=== PATIENT | female | born 1990 | race Caucasian/White ===

== ENCOUNTER 2018-02-15 01:56 | Emergency (ER) | payer MEDICAID ==
[~2018-02-15] VITALS: Ht 160 cm; Wt 82.5 kg
[2018-02-15 02:10] VITALS: Ht 160 cm; Wt 82.5 kg
[2018-02-15 03:23] LABS: PLATELET COUNT 286 x10^3mcL (130-400); RED CELL DISTRIBUTION WIDTH 12.2 % (11.5-14.5)
[2018-02-15 03:36] LABS: CALCIUM 8.5 mg/dL (8.5-10.1); CARBON DIOXIDE 25.5 mmol/L (21-32); CHLORIDE SERUM 105 mmol/L (98-107); CREATININE SERUM 0.6 mg/dL (0.6-1.0); GFR1 > 60 mL/min; GLUCOSE SERUM 98 mg/dL (74-106); POTASSIUM SERUM 3.4 mmol/L (3.5-5.1); SODIUM SERUM 137 mmol/L (136-145)
[2018-02-15 03:41] LABS: ALKALINE PHOSPHATASE 81 U/L (46-116); ALT/SGPT 22 U/L (14-59); AST/SGOT 12 U/L (15-37); BILIRUBIN TOTAL 0.2 mg/dL (0.20-1.00)
[2018-02-15 03:43] LABS: ALBUMIN 3.1 g/dL (3.4-5.0)
[2018-02-15 06:45] VITALS: BP 138/66
== END 2018-02-15 06:45 | disposition home or self-care (01) ==
LOC: ED 01:56
PROVIDERS: Emergency Medicine
DX: L03.116 Cellulitis of left lower limb (principal); J45.909 Unspecified asthma, uncomplicated
CPT/HCPCS: 36415; Q0092

== ENCOUNTER 2018-03-22 21:24 | Emergency (ER) | payer MEDICAID ==
[2018-03-23 02:14] VITALS: BP 136/92
== END 2018-03-23 02:14 | disposition home or self-care (01) ==
LOC: ED 21:24
DX: L02.612 Cutaneous abscess of left foot (principal); F17.210 Nicotine dependence, cigarettes, uncomplicated; J45.909 Unspecified asthma, uncomplicated; Z88.5 Allergy status to narcotic agent; R03.0 Elevated blood-pressure reading, without diagnosis of hypertension
CPT/HCPCS: 99406; Q0092